=== PATIENT | female | born 2000 | race African-American/Black ===

== ENCOUNTER 2022-01-27 03:57 | Emergency (ER) | payer MEDICAID ==
[~2022-01-27] VITALS: Ht 165.1 cm; Wt 86.1 kg
[2022-01-27 06:50] VITALS: BP 124/75
== END 2022-01-27 06:52 | disposition home or self-care (01) ==
LOC: ER 03:57
DX: R06.00 Dyspnea, unspecified (principal); F41.9 Anxiety disorder, unspecified
CPT/HCPCS: 71045; 93005; 99283

== ENCOUNTER 2022-03-03 21:44 | Emergency (ER) | payer MEDICAID ==
[~2022-03-03] VITALS: Ht 165.1 cm; Wt 88.3 kg
[2022-03-03 21:58] VITALS: BP 173/83
== END 2022-03-04 01:13 | disposition left against medical advice (07) ==
LOC: ER 21:44
DX: Z53.21 Procedure and treatment not carried out due to patient leaving prior to being seen by health care provider (principal)

== ENCOUNTER 2023-06-15 13:12 | Emergency (ER) | payer MEDICAID, OTHER ==
[~2023-06-15] VITALS: Ht 162.6 cm; Wt 82.0 kg
[2023-06-15 13:19] VITALS: O2SAT 96
[2023-06-15] MEDS ORDERED: DICYCLOMINE 10 MG/5 ML ORAL SYR PO STA (15:24)
[2023-06-15 15:35] LABS: CLARITY URINE TURBID (CLEAR); COLOR URINE DARK YELLOW (YELLOW); GLUCOSE URINE NEGATIVE (NEGATIVE); KETONES URINE 1+ (NEGATIVE); LEUKOCYTE ESTERASE URINE 2+ (NEGATIVE); NITRITE URINE NEGATIVE (NEGATIVE); OCCULT BLOOD URINE 2+ (NEGATIVE); PROTEIN URINE 2+ (NEGATIVE); SPECIFIC GRAVITY URINE 1.033 (1.005-1.030)
[2023-06-15] MEDS: MAGNESIUM/ALUMINUM HYDROXIDE/SIMETHICONE 30ML UDC PO STA (15:44)
[2023-06-15] MEDS: ONDANSETRON 4MG ODT PO STA (15:44)
[2023-06-15] MEDS: DICYCLOMINE HCL 10MG CAPSULE PO NR (15:44)
[2023-06-15 15:55] LABS: SQUAMOUS EPITHELIAL CELL URINE 2+ /lpf (RARE/1+); WBC URINE 50-100 /hpf (0-2)
[2023-06-15 15:56] LABS: BACTERIA URINE 2+
[2023-06-15 16:52] LABS: BASOPHILS % 0.4 % (0.0-2.0); EOSINOPHILS % 0.5 % (0.0-5.0); HEMATOCRIT. 40.3 % (36.0-48.0); HEMOGLOBIN. 13.5 g/dL (12.0-16.0); MEAN CORPUSCULAR HEMOGLOBIN 32.1 pg (28.0-32.0); MEAN CORPUSCULAR HGB CONC 33.5 g/dL (31.0-37.0); MEAN CORPUSCULAR VOLUME 95.8 fL (81.0-99.0); MONOCYTES % 8.8 % (2.0-8.0); NEUTROPHILS % 73.3 % (40.0-76.0); PLATELET 319 x1000/uL (130-400); RED BLOOD CELL COUNT 4.21 mill/uL (4.2-5.4); RED CELL DISTRIBUTION WIDTH 11.7 % (11.6-14.6); WHITE BLOOD COUNT 10.6 x1000/uL (4.5-11.0)
[2023-06-15 17:04] LABS: HCG SCREEN NEGATIVE
[2023-06-15 17:10] LABS: ALANINE AMINOTRANSFERASE 18 IU/L (10-49); ASPARTATE AMINOTRANSFERASE 26 IU/L (<34); BILIRUBIN TOTAL 0.7 mg/dL (0.1-1.0); CALCIUM 9.8 mg/dL (8.7-10.4); CARBON DIOXIDE 27 mEq/L (21-32); CHLORIDE 105 mEq/L (98-107); CREATININE 0.9 mg/dL (0.6-1.0); GLUCOSE 90 mg/dL (70-105); POTASSIUM 4.2 mEq/L (3.5-5.1); PROTEIN TOTAL 8.8 g/dL (6.0-8.3); SODIUM 139 mEq/L (136-145); UREA NITROGEN BLOOD 9 mg/dL (9-23)
[2023-06-15 17:15] LABS: ETHANOL BLOOD < 10 mg/dL (<10)
[2023-06-15] MEDS ORDERED: PHEN-815 MT (17:46)
[2023-06-15] MEDS ORDERED: NITR-87 MT (17:46)
[2023-06-15 18:19] VITALS: BP 130/86; PULSE 73; RESP 14; TEMP 97.9
== END 2023-06-15 18:22 | disposition home or self-care (01) ==
LOC: ER 13:12
DX: N39.0 Urinary tract infection, site not specified (principal); F41.9 Anxiety disorder, unspecified
CPT/HCPCS: 80053; 81003; 81025; 80320; 84703; 83690; 85025; 87086; 36415; 71045; 93005; 99285; Q0162; G0480

== ENCOUNTER 2023-10-26 17:09 | Emergency (ER) | payer OTHER ==
[~2023-10-26] VITALS: Ht 162.6 cm; Wt 81.0 kg
[~2023-10-26 17:09] MED LIST: NITR-87 MT; PHEN-815 MT
[2023-10-26 17:21] VITALS: O2SAT 98
[2023-10-26] MEDS ORDERED: KETOROLAC 30MG/ML VIAL IV STA (19:23)
[2023-10-26 19:44] LABS: BASOPHILS % 0.4 % (0.0-2.0); EOSINOPHILS % 0.8 % (0.0-5.0); HEMATOCRIT. 37.4 % (36.0-48.0); HEMOGLOBIN. 12.7 g/dL (12.0-16.0); LYMPHOCYTES % 30.6 % (20.0-50.0); MEAN CORPUSCULAR HEMOGLOBIN 32.2 pg (28.0-32.0); MEAN CORPUSCULAR VOLUME 94.5 fL (81.0-99.0); MEAN PLATELET VOLUME 7.7 fl (7.4-10.4); MONOCYTES % 7.6 % (2.0-8.0); NEUTROPHILS % 60.6 % (40.0-76.0); PLATELET 372 x1000/uL (130-400); RED BLOOD CELL COUNT 3.95 mill/uL (4.2-5.4); WHITE BLOOD COUNT 9.9 x1000/uL (4.5-11.0)
[2023-10-26 19:52] LABS: HCG SCREEN NEGATIVE
[2023-10-26 19:55] LABS: CHLORIDE 106 mEq/L (98-107); POTASSIUM 4.2 mEq/L (3.5-5.1); SODIUM 138 mEq/L (136-145)
[2023-10-26 19:56] LABS: CALCIUM 9.8 mg/dL (8.7-10.4); CARBON DIOXIDE 27 mEq/L (21-32)
[2023-10-26 20:01] LABS: GLUCOSE 95 mg/dL (70-105); UREA NITROGEN BLOOD 11 mg/dL (9-23)
[2023-10-26 20:10] LABS: CLARITY URINE CLOUDY (CLEAR); COLOR URINE YELLOW (YELLOW); GLUCOSE URINE NEGATIVE (NEGATIVE); KETONES URINE 1+ (NEGATIVE); LEUKOCYTE ESTERASE URINE 2+ (NEGATIVE); NITRITE URINE POSITIVE (NEGATIVE); OCCULT BLOOD URINE NEGATIVE (NEGATIVE); PROTEIN URINE NEGATIVE (NEGATIVE); SPECIFIC GRAVITY URINE 1.029 (1.005-1.030)
[2023-10-26 20:26] LABS: BACTERIA URINE 1+; RBC URINE 0-2 /hpf (0-2); SQUAMOUS EPITHELIAL CELL URINE FEW /lpf (RARE/1+); WBC URINE 50-100 /hpf (0-2)
[2023-10-26] MEDS ORDERED: CEFTRIAXONE SODIUM 1G VIAL IM ONE (21:00)
[2023-10-26] MEDS: CEFTRIAXONE SODIUM 1G VIAL IM NR (21:33)
[2023-10-26] MEDS: KETOROLAC 30MG/ML VIAL IV NR (21:33)
[2023-10-26] MEDS: MORPHINE SULFATE 4 MG/ML INJ (FOR IV/IM USE) IM NR (21:57)
[2023-10-26] MEDS: DIAZEPAM 5 MG/ML 2ML SYR IV ONE (23:44)
[2023-10-27 00:46] VITALS: TEMP 97.8
[2023-10-27 01:55] VITALS: BP 132/82; PULSE 62; RESP 21
== END 2023-10-27 02:00 | disposition short-term general hospital (02) ==
LOC: ER 17:09
DX: M51.27 Other intervertebral disc displacement, lumbosacral region (principal); N39.0 Urinary tract infection, site not specified; F41.9 Anxiety disorder, unspecified; F19.90 Other psychoactive substance use, unspecified, uncomplicated
CPT/HCPCS: 80048; 81003; 84703; 85025; 87086; 36415; 72131; 96372; 96374; 96375; 99285; J0696; J3360; J1885; J2270; Z7610 ×2; 96365

== ENCOUNTER 2023-12-25 14:26 | Emergency (ER) | payer OTHER ==
[~2023-12-25] VITALS: Ht 162.6 cm; Wt 86.6 kg
[2023-12-25 14:33] VITALS: BP 145/88; PULSE 78; RESP 16; TEMP 98.3; O2SAT 99
[2023-12-25] MEDS ORDERED: MAGNESIUM/ALUMINUM HYDROXIDE/SIMETHICONE 30ML UDC PO STA (15:21)
[2023-12-25] MEDS ORDERED: LORAZEPAM 1MG TABLET PO ONE (15:30)
[2023-12-25] MEDS ORDERED: OCTREOTIDE 1,000 MCG in SODIUM CHLORIDE 0.9% 100 ML IV ONE (15:30)
[2023-12-25] MEDS: PANTOPRAZOLE SODIUM 40 MG/VIAL IV ONE (17:00)
[2023-12-25] MEDS: CEFTRIAXONE 1GM/50ML 50 ML IV ONE (17:00)
[2023-12-25] MEDS: SODIUM CHLORIDE 0.9% 1,000 ML IV ONE (17:00)
[2023-12-25 17:04] LABS: CLARITY URINE CLOUDY (CLEAR); COLOR URINE YELLOW (YELLOW); GLUCOSE URINE NEGATIVE (NEGATIVE); KETONES URINE NEGATIVE (NEGATIVE); LEUKOCYTE ESTERASE URINE 1+ (NEGATIVE); NITRITE URINE NEGATIVE (NEGATIVE); OCCULT BLOOD URINE NEGATIVE (NEGATIVE); PH URINE >=9.0 (4.5-8.0); PROTEIN URINE TRACE (NEGATIVE); SPECIFIC GRAVITY URINE 1.015 (1.005-1.030)
[2023-12-25 17:06] LABS: BASOPHILS % 0.7 % (0.0-2.0); EOSINOPHILS % 0.7 % (0.0-5.0); HEMATOCRIT. 39.2 % (36.0-48.0); HEMOGLOBIN. 13.2 g/dL (12.0-16.0); LYMPHOCYTES % 31.3 % (20.0-50.0); MEAN CORPUSCULAR HEMOGLOBIN 31.7 pg (28.0-32.0); MEAN CORPUSCULAR HGB CONC 33.6 g/dL (31.0-37.0); MEAN CORPUSCULAR VOLUME 94.2 fL (81.0-99.0); MEAN PLATELET VOLUME 7.6 fl (7.4-10.4); MONOCYTES % 8.5 % (2.0-8.0); NEUTROPHILS % 58.8 % (40.0-76.0); PLATELET 369 x1000/uL (130-400); RED BLOOD CELL COUNT 4.16 mill/uL (4.2-5.4); RED CELL DISTRIBUTION WIDTH 12.2 % (11.6-14.6); WHITE BLOOD COUNT 6.8 x1000/uL (4.5-11.0)
[2023-12-25 17:10] LABS: CHLORIDE 104 mEq/L (98-107); POTASSIUM 4.3 mEq/L (3.5-5.1); SODIUM 139 mEq/L (136-145)
[2023-12-25 17:11] LABS: CALCIUM 9.6 mg/dL (8.7-10.4); CARBON DIOXIDE 27 mEq/L (21-32)
[2023-12-25 17:13] LABS: PROTHROMBIN TIME 11.3 sec (9.6-11.0)
[2023-12-25 17:16] LABS: GLUCOSE 88 mg/dL (70-105); UREA NITROGEN BLOOD 8 mg/dL (9-23)
[2023-12-25 17:18] LABS: ALANINE AMINOTRANSFERASE 23 IU/L (10-49); ALBUMIN 4.7 g/dL (3.2-4.8); ASPARTATE AMINOTRANSFERASE 26 IU/L (<34); BILIRUBIN TOTAL 0.4 mg/dL (0.1-1.0); PROTEIN TOTAL 7.6 g/dL (6.0-8.3)
[2023-12-25 17:21] LABS: HCG SCREEN NEGATIVE
[2023-12-25 17:22] LABS: ETHANOL BLOOD < 10 mg/dL (<10); TROPONIN I HIGH SENSITIVITY < 4 ng/L (3.0-34)
[2023-12-25 17:26] LABS: RBC URINE NONE SEEN /hpf (0-2)
[2023-12-25 17:27] LABS: BACTERIA URINE NONE SEEN; SQUAMOUS EPITHELIAL CELL URINE FEW /lpf (RARE/1+)
[2023-12-25] MEDS ORDERED: OCTREOTIDE 1,000 MCG in SODIUM CHLORIDE 0.9% 98 ML IV ONE (17:30)
[2023-12-25] MEDS: MAGNESIUM/ALUMINUM HYDROXIDE/SIMETHICONE 30ML UDC PO NR (17:36)
[2023-12-25] MEDS: LORAZEPAM 1MG TABLET PO NR (17:36)
[2023-12-25] MEDS ORDERED: IOHEXOL-300 100 ML BOTTLE ONE (23:29)
== END 2023-12-25 19:07 | disposition home or self-care (01) ==
LOC: ER 14:37
DX: F10.10 Alcohol abuse, uncomplicated (principal); K92.0 Hematemesis; F41.9 Anxiety disorder, unspecified; Y90.0 Blood alcohol level of less than 20 mg/100 ml
CPT/HCPCS: 80053; 81003; 81025; 80320; 84703; 83690; 85025; 85610; 86850; 86900; 86901; 84484; 36415; 71045; 70490; 71260; 74177; 96365; 96375; 99285; Q9967; J0696; J2470; J7030; Z7610; J2354; J7050; G0480

== ENCOUNTER 2024-01-28 12:54 | Emergency (ER) | payer OTHER ==
[~2024-01-28] VITALS: Ht 162.6 cm; Wt 86.2 kg
[2024-01-28 12:56] VITALS: O2SAT 98
[2024-01-28] MEDS: DIAZEPAM 5 MG TABLET PO ONE (13:59)
[2024-01-28] MEDS: ACETAMINOPHEN 325MG TABLET PO ONE (13:59)
[2024-01-28] MEDS: KETOROLAC 30MG/ML VIAL IM ONE (13:59)
[2024-01-28] MEDS ORDERED: DEXAMETHASONE 2MG TABLET PO ONE (14:00)
[2024-01-28] MEDS: DEXAMETHASONE 4MG TABLET PO SCH (14:19)
[2024-01-28 16:03] LABS: BASOPHILS % 0.4 % (0.0-2.0); EOSINOPHILS % 0.6 % (0.0-5.0); HEMATOCRIT. 36.9 % (36.0-48.0); HEMOGLOBIN. 12.6 g/dL (12.0-16.0); MEAN CORPUSCULAR HEMOGLOBIN 32.3 pg (28.0-32.0); MEAN CORPUSCULAR HGB CONC 34.2 g/dL (31.0-37.0); MEAN CORPUSCULAR VOLUME 94.2 fL (81.0-99.0); MEAN PLATELET VOLUME 7.1 fl (7.4-10.4); MONOCYTES % 7.7 % (2.0-8.0); NEUTROPHILS % 74.3 % (40.0-76.0); PLATELET 327 x1000/uL (130-400); RED BLOOD CELL COUNT 3.91 mill/uL (4.2-5.4); WHITE BLOOD COUNT 8.1 x1000/uL (4.5-11.0)
[2024-01-28 16:19] LABS: CHLORIDE 108 mEq/L (98-107); POTASSIUM 4.6 mEq/L (3.5-5.1); SODIUM 141 mEq/L (136-145)
[2024-01-28 16:20] LABS: CALCIUM 9.5 mg/dL (8.7-10.4); CARBON DIOXIDE 29 mEq/L (21-32)
[2024-01-28 16:25] LABS: CREATININE 1.1 mg/dL (0.6-1.0); GLUCOSE 110 mg/dL (70-105); UREA NITROGEN BLOOD 12 mg/dL (9-23)
[2024-01-28] MEDS ORDERED: LACTATED RINGERS 1,000 ML IV SCH (16:45)
[2024-01-28 18:00] VITALS: BP 134/88; PULSE 74; RESP 18; TEMP 36.55848; O2SAT 98
== END 2024-01-28 18:58 | disposition short-term general hospital (02) ==
LOC: ER 13:03
DX: N17.9 Acute kidney failure, unspecified (principal); F41.9 Anxiety disorder, unspecified
CPT/HCPCS: 99291; 80048; 85025; 36415; 96372; J8540; J1885

== ENCOUNTER 2024-10-27 22:44 | Emergency (ER) | payer OTHER ==
[~2024-10-27] VITALS: Ht 162.6 cm; Wt 87.8 kg
[2024-10-27 22:56] VITALS: O2SAT 100
[2024-10-27 23:18] LABS: BASOPHILS % 0.7 % (0.0-2.0); EOSINOPHILS % 0.3 % (0.0-5.0); HEMATOCRIT. 37.6 % (36.0-48.0); HEMOGLOBIN. 12.4 g/dL (12.0-16.0); LYMPHOCYTES % 24.3 % (20.0-50.0); MEAN PLATELET VOLUME 7.6 fl (7.4-10.4); MONOCYTES % 9.6 % (2.0-8.0); NEUTROPHILS % 65.1 % (40.0-76.0); PLATELET 380 x1000/uL (130-400); RED BLOOD CELL COUNT 4.00 mill/uL (4.2-5.4); RED CELL DISTRIBUTION WIDTH 11.8 % (11.6-14.6)
[2024-10-27 23:23] LABS: CLARITY URINE CLEAR (CLEAR); COLOR URINE YELLOW (YELLOW); GLUCOSE URINE NEGATIVE (NEGATIVE); KETONES URINE NEGATIVE (NEGATIVE); LEUKOCYTE ESTERASE URINE TRACE (NEGATIVE); NITRITE URINE NEGATIVE (NEGATIVE); OCCULT BLOOD URINE NEGATIVE (NEGATIVE); PH URINE 8.5 (4.5-8.0); PROTEIN URINE 1+ (NEGATIVE); SPECIFIC GRAVITY URINE 1.026 (1.005-1.030); UROBILINOGEN URINE 1.0 E.U./dL (0.2-1.0)
[2024-10-27 23:28] LABS: CREATININE 0.9 mg/dL (0.6-1.0); UREA NITROGEN BLOOD 11 mg/dL (9-23)
[2024-10-27 23:52] LABS: SQUAMOUS EPITHELIAL CELL URINE 3+ /lpf (RARE/1+)
[2024-10-27 23:53] LABS: BACTERIA URINE TRACE; RBC URINE 0-2 /hpf (0-2); WBC URINE 0-2 /hpf (0-2)
[2024-10-28] MEDS ORDERED: ONDA-239 PO (00:29)
[2024-10-28] MEDS: HYDROCODONE/ACETAMINOPHEN 7.5/325MG TABLET PO ONE (01:36)
[2024-10-28] MEDS: ONDANSETRON 4MG ODT PO ONE (01:36)
[2024-10-28 01:39] VITALS: BP 135/87; PULSE 60; RESP 15; TEMP 36.7; O2SAT 100
== END 2024-10-28 01:44 | disposition home or self-care (01) ==
LOC: ER 22:44
DX: F10.10 Alcohol abuse, uncomplicated (principal); K92.0 Hematemesis
CPT/HCPCS: 80048; 81003; 85025; 36415; 99283; Q0162; Z7610